=== PATIENT | female | born 1945 | race Two or more races ===

== ENCOUNTER 2024-01-08 00:08 | Emergency (ER) | payer OTHER ==
[~2024-01-08] VITALS: Ht 149.9 cm; Wt 65.8 kg
[2024-01-08] MEDS ORDERED: METROTEXATE (00:22)
[2024-01-08] MEDS ORDERED: ENALAPRIL M1 MG/1 ML PO (00:23)
[2024-01-08] MEDS ORDERED: MILLIPRED5 MG (00:23)
[2024-01-08] MEDS ORDERED: FOLIC ACID0.8 M1 (00:23)
[2024-01-08] MEDS ORDERED: RINGERS SOLUTION,LACTATED 1,000 ML IV STA (04:14)
[2024-01-08] MEDS ORDERED: KETOROLAC TROMETHAMINE 30 MG VIAL IV STA (04:14)
[2024-01-08 04:58] LABS: PH,URINE 5.5 (5.0-8.0); URINE APPEARANCE Clear; URINE BILIRRUBIN Negative (NEGATIVE); URINE BLOOD Negative; URINE COLOR Yellow; URINE GLUCOSE Negative (NEGATIVE); URINE LEUKOCYTE Trace; URINE NITRATE Negative; URINE PROTEIN Negative (NEGATIVE); URINE UROBILINOGEN 0.2 E.U./dl
[2024-01-08 04:59] LABS: URINE BACTERIA 46.6 uL (0.0-1933); URINE EPITHELIAL CELLS 9.5 uL (0.0-38.8); URINE WBC 9.4 uL (0.0-23.2)
[2024-01-08 05:16] LABS: ERYTHROCYTE SEDIMENTATION RATE 87 mm/hr
[2024-01-08 05:20] LABS: CALCIUM 8.5 mg/dL (8.5-10.1); CREATININE SERUM 0.53 mg/dL (0.55-1.02); GFR 111.28; POTASSIUM 3.51 mEq/L (3.5-5.1)
[2024-01-08 05:24] LABS: C-REACTIVE PROTEIN 6.69 MG/DL (0.00-0.29)
[2024-01-08 05:34] LABS: HEMATOCRIT 29.1 % (36.0-45.00); MEAN CELL VOLUME 88.1 fL (80.00-100.00); MEAN CORPUSCULAR HGB CONC 33.2 g/dl (32.0-36.0); PLATELET COUNT 263 K/uL (150-450)
[2024-01-08 05:44] LABS: HEMOGLOBIN 9.7 g/dL (12.0-15.00); MEAN CORPUSCULAR HEMOGLOBIN 29.3 pg (27.00-32.0); RED CELL DISTRIBUTION WIDTH 16.1 % (11.5-14.5)
== END 2024-01-08 07:57 | disposition home or self-care (01) ==
LOC: ER 00:08
DX: R50.9 Fever, unspecified (principal); T50.905A Adverse effect of unspecified drugs, medicaments and biological substances, initial encounter; Z20.822 Contact with and (suspected) exposure to COVID-19
CPT/HCPCS: 36415; 70450; 71045; 96365; 99284; J1885

== ENCOUNTER 2024-10-18 10:35 | Outpatient (CLI) | payer OTHER ==
[~2024-10-18 10:35] MED LIST: ENALAPRIL M1 MG/1 ML PO; FOLIC ACID0.8 M1; METROTEXATE; MILLIPRED5 MG
== END 2024-10-18 10:36 | disposition home or self-care (01) ==
LOC: NUCLEAR 10:35
DX: G30.9 Alzheimer's disease, unspecified (principal)
CPT/HCPCS: 78803; A9557